=== PATIENT | male | born 1955 | race Caucasian/White ===

== ENCOUNTER 2016-11-04 13:40 | Inpatient (IN) | payer OTHER ==
[~2016-11-04] VITALS: Ht 170.2 cm; Wt 103.0 kg
[2016-11-04 15:44] LABS: CALCIUM 7.9 mg/dL (8.5-10.1); CARBON DIOXIDE 17.8 mmol/L (21-32); CHLORIDE SERUM 115 mmol/L (98-107); CREATININE SERUM 1.1 mg/dL (0.7-1.3); GFR1 > 60 mL/min; GLUCOSE SERUM 152 mg/dL (74-106); POTASSIUM SERUM 4.2 mmol/L (3.5-5.1); SODIUM SERUM 144 mmol/L (136-145)
[2016-11-04 15:50] LABS: ALKALINE PHOSPHATASE 88 U/L (46-116); ALT/SGPT 124 U/L (16-63); AST/SGOT 64 U/L (15-37); BASOPHIL % 0.2 % (0-2); BILIRUBIN TOTAL 0.7 mg/dL (0.20-1.00); PLATELET COUNT 135 x10^3mcL (130-400)
[2016-11-04 15:56] LABS: AMPHETAMINE QUAL UR NONE DETECTED (NEG <=1000)
[2016-11-04 16:00] LABS: RED CELL DISTRIBUTION WIDTH 14.9 % (11.5-14.5)
[2016-11-04 16:01] LABS: ALBUMIN 2.3 g/dL (3.4-5.0); TOTAL PROTEIN, SERUM 5.7 g/dL (6.4-8.2)
[2016-11-04 16:55] LABS: rbc morphology (normal/abnorm) ABNORMAL (NORMAL)
[2016-11-04 17:45] VITALS: BP 149/92
[2016-11-04 18:00] LABS: T3 TOTAL 1.21 ng/mL
[2016-11-04 18:07] LABS: FREE T4 1.01 ng/dL (0.76-1.46); FREE THYROXINE INDEX 2.5 ug/dL (1.4-4.5); T4(THYROXINE) 8.4 ug/dL (4.7-13.3)
[2016-11-04 19:12] LABS: MAGNESIUM 1.6 mg/dL (1.8-2.4); PHOSPHOROUS 2.1 mg/dL (2.5-4.9)
[2016-11-04 20:02] LABS: UA SPECIFIC GRAVITY 1.015 (1.005-1.035); microscopic required? YES; urine erythrocyte TRACE (NEGATIVE)
[2016-11-04 22:00] VITALS: BP 136/70
[2016-11-04 22:13] LABS: PLATELET COUNT 128 x10^3mcL (130-400); RED CELL DISTRIBUTION WIDTH 14.7 % (11.5-14.5)
[2016-11-04 22:28] LABS: RED BLOOD CELLS 2.36 M/mm3 (4.52-5.90)
[2016-11-04 22:53] LABS: BAND NEUTROPHIL 2 % (0-10); METAMYELOCTE 5 % (0-2); MONOCYTE 3 % (0-7); SEGMENTED NEUTROPHILS 69 % (37-75)
[2016-11-04 22:54] LABS: rbc morphology (normal/abnorm) ABNORMAL (NORMAL)
[2016-11-04 22:55] LABS: tear drop cell (dacryocyte) 1+
[2016-11-04 23:02] VITALS: BP 112/69
[2016-11-05 02:37] LABS: CALCIUM 7.4 mg/dL (8.5-10.1); CARBON DIOXIDE 17.6 mmol/L (21-32); CHLORIDE SERUM 116 mmol/L (98-107); CREATININE SERUM 1.1 mg/dL (0.7-1.3); GFR1 > 60 mL/min; GLUCOSE SERUM 123 mg/dL (74-106); POTASSIUM SERUM 4.8 mmol/L (3.5-5.1); SODIUM SERUM 145 mmol/L (136-145)
[2016-11-05 03:17] LABS: PLATELET COUNT 118 x10^3mcL (130-400); RED CELL DISTRIBUTION WIDTH 15.1 % (11.5-14.5)
[2016-11-05 03:29] LABS: BAND NEUTROPHIL 3 % (0-10); METAMYELOCTE 8 % (0-2); MONOCYTE 5 % (0-7); SEGMENTED NEUTROPHILS 58 % (37-75)
[2016-11-05 03:32] LABS: rbc morphology (normal/abnorm) ABNORMAL (NORMAL)
[2016-11-05 03:51] LABS: TOTAL IRON BINDING CAPACITY 275 ug/dL (250-450)
[2016-11-05 03:52] LABS: IRON 194 ug/dL (65-170)
[2016-11-05 06:21] VITALS: BP 130/79
[2016-11-05 06:49] LABS: CALCIUM 7.5 mg/dL (8.5-10.1); CARBON DIOXIDE 15.9 mmol/L (21-32); CHLORIDE SERUM 117 mmol/L (98-107); GFR1 > 60 mL/min; GLUCOSE SERUM 126 mg/dL (74-106); POTASSIUM SERUM 4.6 mmol/L (3.5-5.1); SODIUM SERUM 145 mmol/L (136-145)
[2016-11-05 06:51] LABS: MAGNESIUM 1.9 mg/dL (1.8-2.4); PHOSPHOROUS 2.3 mg/dL (2.5-4.9)
[2016-11-05 07:16] LABS: PLATELET COUNT 121 x10^3mcL (130-400); RED CELL DISTRIBUTION WIDTH 14.9 % (11.5-14.5)
[2016-11-05 08:54] VITALS: BP 144/75
[2016-11-05 09:51] LABS: PLATELET COUNT 136 x10^3mcL (130-400)
[2016-11-05 09:53] LABS: RED CELL DISTRIBUTION WIDTH 15.5 % (11.5-14.5)
[2016-11-05 10:00] LABS: CARBON DIOXIDE 19.8 mmol/L (21-32); CHLORIDE SERUM 117 mmol/L (98-107); CREATININE SERUM 1.1 mg/dL (0.7-1.3); GFR1 > 60 mL/min; GLUCOSE SERUM 139 mg/dL (74-106); POTASSIUM SERUM 4.4 mmol/L (3.5-5.1); SODIUM SERUM 145 mmol/L (136-145)
[2016-11-05 10:25] LABS: BAND NEUTROPHIL 4 % (0-10); BASOPHIL 0 % (0-2); METAMYELOCTE 6 % (0-2); MONOCYTE 6 % (0-7); SEGMENTED NEUTROPHILS 57 % (37-75)
[2016-11-05 10:26] LABS: rbc morphology (normal/abnorm) ABNORMAL (NORMAL)
[2016-11-05 10:40] LABS: BAND NEUTROPHIL 4 % (0-10); BASOPHIL 0 % (0-2); METAMYELOCTE 6 % (0-2); MONOCYTE 6 % (0-7); SEGMENTED NEUTROPHILS 58 % (37-75)
[2016-11-05 10:41] LABS: rbc morphology (normal/abnorm) ABNORMAL (NORMAL)
[2016-11-05 12:22] VITALS: BP 123/78
[2016-11-05 14:29] LABS: CALCIUM 7.6 mg/dL (8.5-10.1); CARBON DIOXIDE 16.8 mmol/L (21-32); CREATININE SERUM 1.4 mg/dL (0.7-1.3); POTASSIUM SERUM 4.6 mmol/L (3.5-5.1)
[2016-11-05 14:42] LABS: PLATELET COUNT 151 x10^3mcL (130-400)
[2016-11-05 14:54] LABS: RED CELL DISTRIBUTION WIDTH 16.4 % (11.5-14.5)
[2016-11-05 16:19] LABS: BAND NEUTROPHIL 4 % (0-10); BASOPHIL 0 % (0-2); MONOCYTE 8 % (0-7); SEGMENTED NEUTROPHILS 66 % (37-75)
[2016-11-05 16:24] LABS: rbc morphology (normal/abnorm) ABNORMAL (NORMAL); target cell (codocyte) 1+
[2016-11-05 16:28] LABS: PLATELET MORPHOLOGY PLATELETS NORMAL
[2016-11-05 17:02] VITALS: BP 120/66
[2016-11-05 18:50] LABS: PLATELET COUNT 154 x10^3mcL (130-400)
[2016-11-05 18:51] LABS: CALCIUM 7.8 mg/dL (8.5-10.1); CREATININE SERUM 1.4 mg/dL (0.7-1.3); POTASSIUM SERUM 4.5 mmol/L (3.5-5.1)
[2016-11-05 18:52] LABS: RED CELL DISTRIBUTION WIDTH 16.8 % (11.5-14.5)
[2016-11-05 18:56] LABS: BAND NEUTROPHIL 4 % (0-10); BASOPHIL 0 % (0-2); MONOCYTE 8 % (0-7); SEGMENTED NEUTROPHILS 66 % (37-75)
[2016-11-05 18:57] LABS: PLATELET MORPHOLOGY PLATELETS NORMAL; rbc morphology (normal/abnorm) ABNORMAL (NORMAL); target cell (codocyte) 1+
[2016-11-05 21:37] VITALS: BP 92/56
[2016-11-05 22:04] LABS: CALCIUM 7.7 mg/dL (8.5-10.1); CARBON DIOXIDE 19.7 mmol/L (21-32); CHLORIDE SERUM 112 mmol/L (98-107); CREATININE SERUM 1.1 mg/dL (0.7-1.3); GFR1 > 60 mL/min; GLUCOSE SERUM 127 mg/dL (74-106); PLATELET COUNT 123 x10^3mcL (130-400); POTASSIUM SERUM 4.3 mmol/L (3.5-5.1); RED CELL DISTRIBUTION WIDTH 16.7 % (11.5-14.5); SODIUM SERUM 139 mmol/L (136-145)
[2016-11-05 22:30] LABS: ATYPICAL LYMPH 1 %; BAND NEUTROPHIL 2 % (0-10); METAMYELOCTE 9 % (0-2); MONOCYTE 4 % (0-7); MYELOCYTE 1 % (0-2); SEGMENTED NEUTROPHILS 68 % (37-75)
[2016-11-05 22:32] LABS: PLATELET MORPHOLOGY LARGE PLATELET SEEN; rbc morphology (normal/abnorm) ABNORMAL (NORMAL)
[2016-11-06 05:24] VITALS: BP 131/69
[2016-11-06 06:20] LABS: CALCIUM 7.7 mg/dL (8.5-10.1); CARBON DIOXIDE 19.6 mmol/L (21-32); CHLORIDE SERUM 114 mmol/L (98-107); CREATININE SERUM 1.1 mg/dL (0.7-1.3); GFR1 > 60 mL/min; GLUCOSE SERUM 115 mg/dL (74-106); POTASSIUM SERUM 4.3 mmol/L (3.5-5.1); SODIUM SERUM 141 mmol/L (136-145)
[2016-11-06 07:42] LABS: PLATELET COUNT 145 x10^3mcL (130-400)
[2016-11-06 07:44] LABS: RED CELL DISTRIBUTION WIDTH 17.6 % (11.5-14.5)
[2016-11-06 10:43] VITALS: BP 104/60
[2016-11-06 11:14] LABS: BAND NEUTROPHIL 4 % (0-10); BASOPHIL 0 % (0-2); METAMYELOCTE 9 % (0-2); MONOCYTE 3 % (0-7); MYELOCYTE 1 % (0-2); SEGMENTED NEUTROPHILS 65 % (37-75)
[2016-11-06 11:15] LABS: rbc morphology (normal/abnorm) ABNORMAL (NORMAL)
[2016-11-06 13:28] VITALS: BP 93/52
[2016-11-06 20:44] LABS: CALCIUM 7.4 mg/dL (8.5-10.1); CARBON DIOXIDE 19.6 mmol/L (21-32); CHLORIDE SERUM 112 mmol/L (98-107); CREATININE SERUM 0.9 mg/dL (0.7-1.3); GFR1 > 60 mL/min; GLUCOSE SERUM 122 mg/dL (74-106); POTASSIUM SERUM 4.3 mmol/L (3.5-5.1); SODIUM SERUM 140 mmol/L (136-145)
[2016-11-06 20:52] LABS: PLATELET COUNT 119 x10^3mcL (130-400); RED CELL DISTRIBUTION WIDTH 17.1 % (11.5-14.5)
[2016-11-06 21:29] VITALS: BP 99/36
[2016-11-06 21:29] LABS: BASOPHIL 0 % (0-2); MONOCYTE 9 % (0-7); SEGMENTED NEUTROPHILS 66 % (37-75); rbc morphology (normal/abnorm) ABNORMAL (NORMAL)
[2016-11-06 21:30] LABS: PLATELET MORPHOLOGY PLATELETS DECREASED
[2016-11-07] VITALS (8 sets, daily range): BP systolic 97–138; BP diastolic 34–65
[2016-11-07 06:28] LABS: CALCIUM 7.3 mg/dL (8.5-10.1); CARBON DIOXIDE 22.5 mmol/L (21-32); CHLORIDE SERUM 114 mmol/L (98-107); CREATININE SERUM 0.9 mg/dL (0.7-1.3); GFR1 > 60 mL/min; GLUCOSE SERUM 102 mg/dL (74-106); POTASSIUM SERUM 4.2 mmol/L (3.5-5.1); SODIUM SERUM 142 mmol/L (136-145)
[2016-11-07 08:12] LABS: BASOPHIL % 0.6 % (0-2)
[2016-11-07 08:16] LABS: PLATELET COUNT 106 x10^3mcL (130-400); RED CELL DISTRIBUTION WIDTH 16.8 % (11.5-14.5)
[2016-11-07 13:40] LABS: rbc morphology (normal/abnorm) NORMAL (NORMAL)
[2016-11-07 16:24] LABS: PLATELET COUNT 140 x10^3mcL (130-400); RED CELL DISTRIBUTION WIDTH 16.9 % (11.5-14.5)
[2016-11-07 16:36] LABS: ATYPICAL LYMPH 3 %; BAND NEUTROPHIL 3 % (0-10); BASOPHIL 0 % (0-2); MONOCYTE 8 % (0-7); SEGMENTED NEUTROPHILS 65 % (37-75); rbc morphology (normal/abnorm) ABNORMAL (NORMAL)
[2016-11-07 16:37] LABS: PLATELET MORPHOLOGY PLATELETS NORMAL
[2016-11-08 05:33] VITALS: BP 132/62
[2016-11-08 06:35] LABS: CALCIUM 7.2 mg/dL (8.5-10.1); CARBON DIOXIDE 21.1 mmol/L (21-32); CHLORIDE SERUM 113 mmol/L (98-107); GFR1 > 60 mL/min; GLUCOSE SERUM 102 mg/dL (74-106); MAGNESIUM 2.2 mg/dL (1.8-2.4); PHOSPHOROUS 2.5 mg/dL (2.5-4.9); POTASSIUM SERUM 3.6 mmol/L (3.5-5.1); SODIUM SERUM 141 mmol/L (136-145)
[2016-11-08 08:00] VITALS: BP 143/67
[2016-11-08 10:21] LABS: PLATELET COUNT 114 x10^3mcL (130-400); RED CELL DISTRIBUTION WIDTH 17.4 % (11.5-14.5)
[2016-11-08 13:27] LABS: ATYPICAL LYMPH 1 %; BAND NEUTROPHIL 2 % (0-10); BASOPHIL 0 % (0-2); MONOCYTE 7 % (0-7); MYELOCYTE 1 % (0-2); SEGMENTED NEUTROPHILS 58 % (37-75)
[2016-11-08 13:28] LABS: rbc morphology (normal/abnorm) ABNORMAL (NORMAL)
[2016-11-08 13:29] LABS: PLATELET MORPHOLOGY PLATELETS DECREASED
[2016-11-08 14:43] VITALS: BP 166/78
[2016-11-08] MEDS ORDERED: LIPI10 PO (15:12)
[2016-11-08] MEDS ORDERED: ZES10 PO (15:13)
[2016-11-08 15:46] VITALS: BP 166/78
== END 2016-11-08 16:37 | disposition home or self-care (01) | DRG 432 ==
LOC: ED 13:40 → DU 16:54 → MU 16:54 → DU 17:30 → MU 11-07 07:36
PROVIDERS: Emergency Medicine; Family Medicine; Internal Medicine Gastroenterology; ADMIT Family Medicine
PROC: 06L34CZ Occlusion of Esophageal Vein with Extraluminal Device, Percutaneous Endoscopic Approach (ICD-10-PCS; principal; 2016-11-05 09:30)
PROC: 30233N1 Transfusion of Nonautologous Red Blood Cells into Peripheral Vein, Percutaneous Approach (ICD-10-PCS; 2016-11-07)
DX: K70.30 Alcoholic cirrhosis of liver without ascites (principal); N17.0 Acute kidney failure with tubular necrosis; I85.11 Secondary esophageal varices with bleeding; E43 Unspecified severe protein-calorie malnutrition; I21.4 Non-ST elevation (NSTEMI) myocardial infarction; K76.6 Portal hypertension; I24.8 Other forms of acute ischemic heart disease; D62 Acute posthemorrhagic anemia; K81.0 Acute cholecystitis; E87.2 Acidosis; D69.59 Other secondary thrombocytopenia; I86.4 Gastric varices; E83.42 Hypomagnesemia; F11.99 Opioid use, unspecified with unspecified opioid-induced disorder; E83.39 Other disorders of phosphorus metabolism; E66.9 Obesity, unspecified; R74.0 Nonspecific elevation of levels of transaminase and lactic acid dehydrogenase [LDH]; I10 Essential (primary) hypertension; D72.829 Elevated white blood cell count, unspecified; E87.8 Other disorders of electrolyte and fluid balance, not elsewhere classified; E83.51 Hypocalcemia; K21.9 Gastro-esophageal reflux disease without esophagitis; Z83.3 Family history of diabetes mellitus; Z68.35 Body mass index [BMI] 35.0-35.9, adult; Z87.891 Personal history of nicotine dependence
CPT/HCPCS: 43235; 83880; 84439; 94150; C9113; G0480; J0696; J1200; J1610; J1956; J2250; J2310; J2354; J2405; J2765; J2916; J3010; J3490; J7030; J7050; P9016; Q0092; Q0163; Q9967